=== PATIENT | female | born 1995 | race American Indian/Alaskan Native ===

== ENCOUNTER 2020-12-14 00:16 | Emergency (ER) | payer OTHER ==
[2020-12-14 00:53] VITALS: BP 151/86
[2020-12-14] MEDS ORDERED: diazePAM 5 MG TAB PO ONE (01:02)
--- NOTE | 2020-12-14 01:53 | Emergency Department Report ---
ED General Adult HPI - General Chief complaint: Urogenital-Female Stated complaint: CONTINUOUS ORGASM Source: patient Mode of arrival: Ambulatory Limitations: No Limitations - History of Present Illness Initial comments: Patient is a nulliparous 25-year-old -[place]ais female with no past medical history presents to the ED with complaint of acute onset persistent abdominal muscle spasm that radiates to the chest wall and back for the last 1 hour after having sexual intercourse about 1 hour ago. Patient states that the symptoms occurred 10 minutes after she finished having sexual intercourse which she states was not vaginal but oral that was performed on her. Patient states that about 10 to 15 minutes afterwards she started experiencing upper abdominal muscle spasm that radiates to her mid posterior thoracic area and the chest wall. Patient states that the symptoms of been persistent for the last 1 hour. Patient denies dizziness, syncope, fever, chills, abdominal pain, dysuria, vaginal bleeding, vaginal discharge, nausea and vomiting, diarrhea, traumatic injury, chest pain or shortness of breath, fever and chills, headache, dizziness or syncope. MD Complaint: Muscle spasm after sexual intercourse -: Sudden, hour(s) (1) Location: chest, abdomen Radiation: back, abdomen Severity scale (0 -10): 4 Quality: dull, other (spasms) Consistency: constant Improves with: none Worsens with: none Associated Symptoms: denies other symptoms. denies: confusion, chest pain, cough, diaphoresis, fever/chills, headaches, loss of appetite, malaise, nausea/vomiting, rash, seizure, shortness of breath, syncope, weakness Treatments Prior to Arrival: none - Related Data Previous Rx's Medication Instructions Recorded Last Taken Type diazePAM TAB [Valium] 5 mg PO TID PRN #15 tablet 12/14/20 Unknown Rx Allergies Allergy/AdvReac Type Severity Reaction Status Date / Time No Known Allergies Allergy Verified 12/14/20 01:08 ED Review of Systems ROS: Stated complaint: CONTINUOUS ORGASM Other details as noted in HPI Constitutional: denies: chills, fever Eyes: denies: eye pain, eye discharge, vision change ENT: denies: ear pain, throat pain Respiratory: denies: cough, shortness of breath, wheezing Cardiovascular: denies: chest pain, palpitations Endocrine: no symptoms reported Gastrointestinal: other (Abdominal muscle spasm). denies: abdominal pain, nausea, vomiting, diarrhea Genitourinary: denies: urgency, dysuria, discharge Musculoskeletal: back pain (Mid posterior thoracic muscle spasm). denies: joint swelling, arthralgia Skin: denies: rash, lesions Neurological: denies: headache, weakness, paresthesias Psychiatric: anxiety. denies: depression Hematological/Lymphatic: denies: easy bleeding, easy bruising ED Past Medical Hx - Medications Home Medications: Home Medications Medication Instructions Recorded Confirmed Last Taken Type diazePAM TAB [Valium] 5 mg PO TID PRN #15 tablet 12/14/20 Unknown Rx ED Physical Exam - General Limitations: No Limitations General appearance: alert, in no apparent distress - Head Head exam: Present: atraumatic, normocephalic, normal inspection - Eye Eye exam: Present: normal appearance, PERRL, EOMI Pupils: Present: normal accommodation - ENT ENT exam: Present: normal exam, normal orophraynx, mucous membranes moist, TM's normal bilaterally, normal external ear exam - Neck Neck exam: Present: normal inspection, full ROM - Respiratory Respiratory exam: Present: normal lung sounds bilaterally. Absent: respiratory distress, wheezes, rales, rhonchi, chest wall tenderness - Cardiovascular Cardiovascular Exam: Present: regular rate, normal rhythm, normal heart sounds. Absent: systolic murmur, diastolic murmur, rubs, gallop - GI/Abdominal GI/Abdominal exam: Present: soft, normal bowel sounds. Absent: tenderness, g uarding, rebound, hyperactive bowel sounds, hypoactive bowel sounds, organomegaly - Extremities Exam Extremities exam: Present: normal inspection, full ROM, normal capillary refill - Back Exam Back exam: Present: normal inspection, full ROM. Absent: tenderness, CVA tenderness (R), CVA tenderness (L), muscle spasm, paraspinal tenderness, vertebral tenderness - Neurological Exam Neurological exam: Present: alert, oriented X3, CN II-XII intact, normal gait, reflexes normal - Psychiatric Psychiatric exam: Present: normal affect, normal mood, anxious - Skin Skin exam: Present: warm, dry, intact, normal color. Absent: rash ED Course Vital Signs 12/14/20 00:51 Temperature 99.3 F Pulse Rate 90 Respiratory 18 Rate Blood Pressure 151/86 O2 Sat by Pulse 99 Oximetry ED Medical Decision Making - Medical Decision Making This is a nulliparous 25-year-old -[place]ais female with no past medical history presents to the ED with complaint of acute onset persistent abdominal muscle spasm that radiates to the chest wall and back for the last 1 hour after having sexual intercourse about 1 hour ago. Patient states that the symptoms occurred 10 minutes after she finished having sexual intercourse which she states was not vaginal but oral that was performed on her. Patient states that about 10 to 15 minutes afterwards she started experiencing upper abdominal muscle spasm that radiates to her mid posterior thoracic area and the chest wall. Patient states that the symptoms of been persistent for the last 1 hour. In the ED, patient is alert and oriented x3 and is not in any distress. Patient vital signs are stable. Physical exam is unremarkable. Patient was treated in the ED with Valium 10 mg p.o. x1. On reevaluation, patient felt better and was discharged home on medications and advised to follow-up with her primary care physician in 5 to 7 days for reevaluation or return to the ED immediately if symptoms get worse. - Differential Diagnosis Muscle spasm; muscle strain; anxiety; Critical care attestation.: If time is entered above; I have spent that time in minutes in the direct care of this critically ill patient, excluding procedure time. ED Disposition Clinical Impression: Anxiety as acute reaction to exceptional stress, Spasm of abdominal muscles Disposition: 01 HOME / SELF CARE / HOMELESS Is pt being admited?: No Does the pt Need Aspirin: No Condition: Stable Instructions: Muscle Cramps and Spasms, [id number], Generalized Anxiety Disorder, Adult Additional Instructions: Your symptoms are likely due to muscle spasm complicated by anxiety. Therefore take medication with food, drink plenty of fluids and follow-up with your primary care physician in 5 to 7 days for reevaluation. Return to the ED immediately if symptoms get worse. Prescriptions: diazePAM TAB [Valium] 5 mg PO TID PRN #15 tablet PRN Reason: Anxiety Referrals: [facility] [Provider Group] - 3-5 Days Forms: Work/School Release Form(ED) Time of Disposition: 01:53 Print Language: SAMI
== END 2020-12-14 02:43 | disposition home or self-care (01) ==
LOC: ED 00:16
DX: F41.1 Generalized anxiety disorder (principal); F43.0 Acute stress reaction; M62.838 Other muscle spasm; Z79.899 Other long term (current) drug therapy
CPT/HCPCS: 99282